=== PATIENT | female | born 1950 | race Two or more races ===

== ENCOUNTER 2018-05-31 10:18 | Outpatient (CLI) | payer OTHER | END 2018-05-31 10:32 | disposition home or self-care (01) | LOC: SONOGRAMA 10:18 | DX: E04.1 Nontoxic single thyroid nodule (principal); I11.9 Hypertensive heart disease without heart failure ==

== ENCOUNTER → 2020-12-10 15:00 | Outpatient (CLI) | payer OTHER | END | disposition home or self-care (01) | LOC: PPH VACUNA 15:00 | DX: Z23 Encounter for immunization (principal) ==

== ENCOUNTER 2021-07-22 08:00 | Outpatient (CLI) | payer OTHER | END 2021-07-22 08:30 | disposition home or self-care (01) | LOC: PPH VACUNA 08:00 | PROVIDERS: ATTEND Emergency Medicine Pediatric Emergency Medicine | DX: Z23 Encounter for immunization (principal) ==